=== PATIENT | female | born 1970 | race Two or more races ===

== ENCOUNTER 2017-08-01 22:59 | Emergency (ER) | payer OTHER ==
[~2017-08-01] VITALS: Ht 157.5 cm; Wt 113.4 kg
[2017-08-01 23:15] VITALS: BP 136/77
[2017-08-02] MEDS ORDERED: IBUPROFEN 600 MG TAB PO ONE (02:00)
[2017-08-02] MEDS ORDERED: BACLOFEN 10 MG TAB PO ONE (02:00)
== END 2017-08-02 02:30 | disposition home or self-care (01) ==
LOC: ER 23:04
DX: S16.1XXA Strain of muscle, fascia and tendon at neck level, initial encounter (principal); S00.83XA Contusion of other part of head, initial encounter; V43.62XA Car passenger injured in collision with other type car in traffic accident, initial encounter; Y93.89 Activity, other specified; Y92.488 Other paved roadways as the place of occurrence of the external cause; Y99.8 Other external cause status
CPT/HCPCS: 70450; 72125